=== PATIENT | female | born 1935 ===

== ENCOUNTER 2017-12-02 17:01 | Inpatient (IN) | payer OTHER ==
[~2017-12-02] VITALS: Ht 167.6 cm; Wt 131.5 kg
[~2017-12-02 17:01] MED LIST: SYNTHROID75 MCG PO
[2017-12-02] MEDS ORDERED: DIOVAN40 MG (17:37)
[2017-12-02] MEDS ORDERED: CATAPRES-TTS 31 EACH (17:38)
[2017-12-09] MEDS ORDERED: DOXYCYCLINE HY100 M2 PO (14:14)
== END 2017-12-09 15:24 | disposition home or self-care (01) | DRG 603 ==
LOC: ER 17:01 → MEDJ 12-03 14:05 → SEC-K 12-03 14:05 → MEDJ 12-04 10:35
PROC: BQ3LZZZ Magnetic Resonance Imaging (MRI) of Right Foot (ICD-10-PCS; principal; 2017-12-04)
DX: L03.031 Cellulitis of right toe (principal); N17.8 Other acute kidney failure; E66.01 Morbid (severe) obesity due to excess calories; I10 Essential (primary) hypertension; E03.8 Other specified hypothyroidism; B37.2 Candidiasis of skin and nail
CPT/HCPCS: 73221